=== PATIENT | female | born 1965 | race Caucasian/White ===

== ENCOUNTER 2016-07-05 05:35 | Day surgery (SDC) | payer BC ==
[~2016-07-05] VITALS: Ht 157.5 cm; Wt 68.0 kg
[~2016-07-05 05:35] MED LIST: AMBIEN10 MG PO
[2016-07-05 06:43] VITALS: BP 143/85
[2016-07-05 11:26] VITALS: BP 181/87
[2016-07-05 15:45] VITALS: BP 131/67
[2016-07-05 16:26] LABS: HEMATOCRIT 39.1 % (36.0-46.0); MCH 31.2 PG (29.0-34.0); MCHC 33.5 G/DL (30.0-36.0); MCV 93.1 FL (83-99); MEAN PLAT.VOLUME 10.4 uM^3 (9.5-12.4); PLATELET COUNT 228 K/uL (156-360); RBC DIS.WIDTH-CV 13.6 % (11.8-14.6); RBC DIS.WIDTH-SD 46.3 % (39-53)
[2016-07-05 16:36] LABS: WHITE BLOOD COUNT 10.7 K/uL (4.1-10.2)
[2016-07-05 16:47] LABS: ANION GAP 9 MEQ/L (2-14); CHLORIDE 100 MEQ/L (99-109); GFR ESTIMATE (CALCULATED) > 59 mL/min/; GLUCOSE 158 mg/dL (70-99); POTASSIUM 4.3 MEQ/L (3.7-5.4); SAMPLE HEMOLYSIS CHECK 0; SAMPLE ICTERIC CHECK 0; SAMPLE LIPEMIA CHECK 0; SODIUM 134 MEQ/L (136-147); UREA NITROGEN (BUN) 4 mg/dL (9-23)
[2016-07-05 19:44] VITALS: BP 122/59
[2016-07-05 23:34] VITALS: BP 118/62
[2016-07-06 04:02] VITALS: BP 109/84
[2016-07-06 06:48] LABS: HEMATOCRIT 36.5 % (36.0-46.0); RED BLOOD COUNT 3.94 M/uL (3.80-5.20); WHITE BLOOD COUNT 8.4 K/uL (4.1-10.2)
[2016-07-06 06:49] LABS: MCH 29.9 PG (29.0-34.0); MCHC 32.3 G/DL (30.0-36.0); MCV 92.6 FL (83-99); MEAN PLAT.VOLUME 10.2 uM^3 (9.5-12.4); PLATELET COUNT 233 K/uL (156-360); RBC DIS.WIDTH-CV 13.8 % (11.8-14.6); RBC DIS.WIDTH-SD 46.7 % (39-53)
[2016-07-06 07:13] LABS: ANION GAP 8 MEQ/L (2-14); CHLORIDE 102 MEQ/L (99-109); GFR ESTIMATE (CALCULATED) > 59 mL/min/; POTASSIUM 3.5 MEQ/L (3.7-5.4); SAMPLE HEMOLYSIS CHECK 0; SAMPLE ICTERIC CHECK 0; SAMPLE LIPEMIA CHECK 0; SODIUM 137 MEQ/L (136-147); UREA NITROGEN (BUN) 3 mg/dL (9-23)
[2016-07-06 07:14] LABS: GLUCOSE 82 mg/dL (70-99)
[2016-07-06 07:58] VITALS: BP 115/62
[2016-07-06] MEDS ORDERED: TRAMADOL HCL50 MG PO (08:55)
== END 2016-07-06 09:58 | disposition home or self-care (01) ==
LOC: SDC 05:35 → 2SOUTH 08:19 → EDSTATUS 08:19 → SDC 08:20 → 2SOUTH 09:30 → 2EAST 09:30 → 2EASTP 11:40 → SDC 15:13 → 2EAST 17:36
PROVIDERS: Obstetrics & Gynecology Gynecologic Oncology
PROC: 0UT97ZZ Resection of Uterus, Via Natural or Artificial Opening (ICD-10-PCS; principal; 2016-07-05)
DX: N93.8 Other specified abnormal uterine and vaginal bleeding (principal); D25.9 Leiomyoma of uterus, unspecified
CPT/HCPCS: 80048; 85027; 88307; G0378; J0171; J0330; J0690; J1100; J1170; J1885; J2270; J2405; J2710; J3010